=== PATIENT | male | born 1980 | race Caucasian/White ===

== ENCOUNTER 2018-08-26 07:46 | Emergency (ER) | payer OTHER ==
[~2018-08-26] VITALS: Ht 167.6 cm; Wt 75.0 kg
[2018-08-26 07:46] VITALS: BP 124/88
[2018-08-26] MEDS ORDERED: MAGICMW SSP (09:12)
== END 2018-08-26 09:27 | disposition home or self-care (01) ==
LOC: M ED 07:46
DX: J02.9 Acute pharyngitis, unspecified (principal)

== ENCOUNTER → 2020-01-19 | Outpatient (CLI) | payer OTHER ==
[~2020-01-19] MED LIST: MAGICMW SSP
--- NOTE | 2020-01-19 15:45 | REP ---
Clinical: Trauma. Technique: AP, lateral, bilateral oblique views right foot . Findings: The osseous structures and joint spaces are intact and normal. There is no evidence for acute fracture or dislocation. Surrounding soft tissues are unremarkable. No subcutaneous emphysema or radiodense foreign body. Impression: No acute fracture or dislocation. Electronically Signed by Napoleon Montes MD 01/19/2020 03:36 P
== END ==
LOC: M LRY 15:02
PROVIDERS: ATTEND Physician Assistant
DX: S99.921A Unspecified injury of right foot, initial encounter (principal); W18.30XA Fall on same level, unspecified, initial encounter; Y92.9 Unspecified place or not applicable
CPT/HCPCS: 73630; G0463